=== PATIENT | female | born 1990 | race Caucasian/White ===

== ENCOUNTER 2017-06-12 09:55 | Emergency (ER) | payer OTHER ==
[2017-06-12 09:55] VITALS: BMI 29.9
--- NOTE | 2017-06-12 10:03 | ED PDOC ---
Arrival/HPI - General Historian: Patient - History of Present Illness Time/Duration: Other (12 hours) Symptom Onset: Sudden Symptom Course: Unchanged Activities at Onset: Rest Context: Home - General Chief Complaint: GI Problem Time Seen by Provider: 06/12/17 10:02 - History of Present Illness Narrative History of Present Illness (Text): 27 F with no PMH presents to ED with complaint of dizziness. Patient states that her symptoms began last night around 11 pm while sitting at home. Patient states that every time she stands up she gets dizzy. She reports sudden onset and never have had this before. Walking, moving head, and standing makes it worse. Nothing relieves her symptoms. She has not had her period in 5 months. She recently had blood work done with PMD (Dr. Lopez) but never followed up for results. (Leo Webb) Past Medical History - Provider Review Nursing Documentation Reviewed: Yes - Travel History Have you recently traveled outside [place] w/in the past 3 mons?: No - Psychiatric Hx Psychophysiologic Disorder: No Hx Substance Use: No - Surgical History Hx Section: Yes Family/Social History - Physician Review Nursing Documentation Reviewed: Yes Family/Social History: Unknown Family HX Smoking Status: Never Smoked Hx Alcohol Use: No Hx Substance Use: No Allergies/Home Meds Allergies/Adverse Reactions: Allergies No Known Allergies Allergy (Verified 06/12/17 10:20) Review of Systems - Review of Systems Constitutional: Fatigue. absent: Weight Change, Fevers, Night Sweats Eyes: absent: Vision Changes, Photophobia, Eye Pain ENT: absent: Hearing Changes, Tinnitus, TMJ Pain, Voice Changes, Sore Throat Respiratory: absent: SOB, Cough, Sputum, Wheezing Cardiovascular: absent: Chest Pain, Palpitations, Edema, Calf Pain, Syncope Gastrointestinal: absent: Abdominal Pain, Constipation, Diarrhea, Nausea, Vomiting Genitourinary Female: absent: Dysuria, Frequency, Vaginal Bleeding, Vaginal Discharge Musculoskeletal: absent: Arthralgias, Back Pain, Neck Pain, Myalgias Skin: absent: Rash, Skin Lesions Neurological: Dizziness. absent: Headache, Focal Weakness, Seizure Endocrine: absent: Diaphoresis, Polyuria, Polydipsia Hemo/Lymphatic: absent: Adenopathy, Easy Bleeding, Easy Bruising Psychiatric: absent: Anxiety, Depression, Suicidal Ideation Physical Exam Vital Signs Reviewed: Yes Temperature: Afebrile Blood Pressure: Normal Pulse: Regular Respiratory Rate: Normal Appearance: Positive for: Uncomfortable Pain Distress: Mild Mental Status: Positive for: Alert and Oriented X 3 - Systems Exam Head: Present: Atraumatic, Normocephalic Pupils: Present: PERRL Extroacular Muscles: Present: EOMI Ears: Present: NORMAL TM Mouth: Present: Moist Mucous Membranes Nose (External): Present: Atraumatic Nose (Internal): Present: Normal Inspection Neck: Present: Normal Range of Motion, Trachea Midline. No: MIDLINE TENDERNESS , Paraspinal Tenderness Respiratory/Chest: Present: Clear to Auscultation, Good Air Exchange. No: Respiratory Distress, Accessory Muscle Use, Wheezes, Rales, Rhonchi Cardiovascular: Present: Regular Rate and Rhythm, Normal S1, S2, Peripheal Pulses Present Abdomen: Present: Normal Bowel Sounds. No: Tenderness, Distention, Peritoneal Signs, Rebound, Guarding Back: No: CVA Tenderness Upper Extremity: Present: Normal ROM, NORMAL PULSES, Neurovascularly Intact, Capillary Refill < 2s Lower Extremity: Present: NORMAL PULSES, Normal ROM, Neurovascularly Intact, Capillary Refill < 2 s Neurological: Present: GCS=15, CN II-XII Intact, Speech Normal, Motor Func Grossly Intact, Normal Sensory Function, Normal Cerebellar Funct, Norm Deep Tendon Reflexes, Gait Normal, Memory Normal, Normal 2Pt Descrimination Skin: Present: Warm, Dry Lymphatic: No: Cervical Adenopathy, Axillary Adenopathy, Inguinal Adenopathy Psychiatric: Present: Alert, Oriented x 3, Normal Insight, Normal Concentration Vital Signs Temp Pulse Resp BP Pulse Ox 06/12/17 12:40 64 15 104/62 100 06/12/17 10:14 98.2 F 87 18 113/76 100 Medical Decision Making - Lab Interpretations I have reviewed the lab results: Yes Interpretation: No clinic. lab abnormalty - RAD Interpretation Regulatory Process Manager: ED Physician, Radiologist - EKG Interpretation Interpreted by ED Physician: Yes Type: 12 lead EKG ED Course and Treatment: CBC, CMP, MAG, Cardiac enzyme, POC pregnacy, UA CXR, EKG IV fluids, Meclizine PERC score is 0, <2% probability of PE - no tachycardia or tachypnea, VS stable Labs, CXR, EKG unremarkable Patient feeling much better after meclizine and iv fluids Patient ambulating without difficulty, no focal/motor/sensory deficits Medically stable for discharge (Leo Webb) Patient seen and examined with resident. Came up with treatment and disposition plan with resident. 06/12/17 12:46 pt with dizziness, no focal neurological deficits on exam HINTS exam negative states she feels much better after meds stats she still has slight residual spinning sensation pt offered admission for further w/u, but asked to be dc'd instead (Ricky Mckinney) - Lab Interpretations Lab Results: 06/12/17 11:00 06/12/17 11:00 Lab Results 06/12/17 11:00: Sodium 139, Potassium 4.1, Chloride 101, Carbon Dioxide 27, Anion Gap 15, BUN 11, Creatinine 0.5, Est GFR ( Amer) > 60, Est GFR (Non- Af Amer) > 60, Random Glucose 86, Calcium 9.2, Magnesium 1.9, Total Bilirubin 0.6, AST 18, ALT 23, Alkaline Phosphatase 34 L, Lactate Dehydrogenase 294 L, Total Creatine Kinase 25 L, Troponin I < 0.01, Total Protein 8.3, Albumin 4.6, Globulin 3.7, Albumin/Globulin Ratio 1.2 06/12/17 11:00: Urine Color Light yellow, Urine Appearance Clear, Urine pH 7.5, Ur Specific [place] 1.015, Urine Protein Negative, Urine Glucose (UA) Negative, Urine Ketones Negative, Urine Blood Negative, Urine Nitrate Negative, Urine Bilirubin Negative, Urine Urobilinogen 0.2, Ur Leukocyte Esterase Negative 06/12/17 11:00: PT 11.1, INR 1.03, APTT 30.8 06/12/17 11:00: WBC 3.3 L D, RBC 5.22, Hgb 13.3, Hct 40.8, MCV 78.2 L, MCH 25.5 , MCHC 32.6, RDW 14.0, Plt Count 209, MPV 9.6, Gran % 43.8 L, Lymph % (Auto) 44.7 H, [place] % (Auto) 8.5 H, Eos % (Auto) 2.4, Baso % (Auto) 0.6, Gran # 1.45, Lymph # 1.5, [place] # 0.3, Eos # 0.1, Baso # 0.02 - RAD Interpretation Narrative RAD Interpretations (Text): CXR: no active disease (Leo Webb) Radiology Orders: 06/12/17 10:36 CHEST PORTABLE [RAD] Stat - EKG Interpretation EKG Interpretation (Text): NSR at 69 bpm (Loe Webb) - Medication Orders Current Medication Orders: Discontinued Medications Sodium Chloride (Sodium Chloride 0.9%) 1,000 mls @ 999 mls/hr IV .Q1H1M STA Stop: 06/12/17 11:42 Last Admin: 06/12/17 11:11 Dose: 999 mls/hr Meclizine HCl (Antivert) 25 mg PO STAT STA Stop: 06/12/17 10:43 Last Admin: 06/12/17 11:09 Dose: 25 mg Disposition/Present on Arrival - Present on Arrival Any Indicators Present on Arrival: No History of DVT/PE: No History of Uncontrolled Diabetes: No Urinary Catheter: No History of Decub. Ulcer: No History Surgical Site Infection Following: None - Disposition Have Diagnosis and Disposition been Completed?: No Disposition Time: 12:02 Patient Plan: Discharge - Disposition Diagnosis: Dizziness Disposition: HOME/ ROUTINE Patient Problems: Current Active Problems Problem Status Onset Dizziness Acute Condition: GOOD Discharge Instructions (ExitCare): Dizziness (ED) Additional Instructions: Thank you for letting us take care of you today. Your provider was Dr. Webb. You were treated for Dizziness. The emergency medical care you received today was directed at your acute symptoms. If you were prescribed any medication, please fill it and take as directed. It may take several days for your symptoms to resolve. Return to the Emergency Department if your symptoms worsen, do not improve, or if you have any other problems. Please contact your doctor or call one of the physicians/clinics you have been referred to that are listed on the Patient Visit Information form that is included in your discharge packet. Bring any paperwork you were given at discharge with you along with any medications you are taking to your follow up visit. Our treatment cannot replace ongoing medical care by a primary care provider (PCP) outside of the emergency department. Thank you for allowing the [facility] team to be part of your care today. If you had an X-Ray or CT scan: A Radiologist will review the ED reading if any change in treatment is needed we will contact you. If you had a blood, urine, or wound culture: It will take several days for the results, if any change in treatment is needed we will contact you. If you had an STI test: It will take 48 hours for the results. Please call after 1 week if you have not heard back. Take Meclizine as prescribed Stay adequately hydrated Follow up with ENT Follow up with PMD within 2-3 days Please return to ED if symptoms persist or condition worsens Prescriptions: Meclizine [Meclizine*] 25 mg PO Q6 #30 tab Referrals: Juma Lopez MD [Primary Care Provider] - Follow up with primary Afshin Kearney DO [Staff Provider] - Follow up with primary
[2017-06-12 10:20] VITALS: TEMP 98.2; O2SAT 100
[2017-06-12] MEDS ORDERED: Sodium Chloride 0.9% 1,000 ML IV STA (10:42)
[2017-06-12 11:16] LABS: BASO # 0.02 K/mm3 (0.0-2.0); BASO % 0.6 % (0.0-3.0); EOS # 0.1 (0.0-0.7); EOS % 2.4 % (1.5-5.0); GRAN # 1.45 (1.4-6.5); GRAN % 43.8 % (50.0-68.0); HEMOGLOBIN 13.3 gm/dL (12.0-16.0); LYMPH # 1.5 (1.2-3.4); LYMPH % 44.7 % (22.0-35.0); MEAN CELL VOLUME 78.2 fL (80.0-105.0); MEAN CORPUSCULAR HEMOGLOBIN 25.5 pg (25.0-35.0); MEAN CORPUSCULAR HGB CONC 32.6 g/dl (31.0-37.0); MEAN PLATELET VOLUME 9.6 fl (7.0-11.0); MONO # 0.3 (0.1-0.6); MONO % 8.5 % (1.0-6.0); PLATELET COUNT 209 10^3/uL (120.0-450.0); RBC 5.22 10^6/uL (3.5-6.1); WHITE BLOOD COUNT 3.3 10^3/ul (4.5-11.0)
[2017-06-12 11:18] LABS: PH,URINE 7.5 (4.7-8.0); URINE BILIRUBIN NEGATIVE (NEGATIVE); URINE BLOOD NEGATIVE (NEGATIVE); URINE GLUCOSE (UA) NEGATIVE (NEGATIVE); URINE LEUKOCYTE ESTERASE NEGATIVE Leu/uL (NEGATIVE); URINE NITRATE NEGATIVE (NEGATIVE); URINE PROTEIN NEGATIVE mg/dL (<30 mg/dL); URINE UROBILINOGEN 0.2 E.U./dL (<1 E.U./dL)
[2017-06-12 11:19] LABS: URINE APPEARANCE CLEAR (CLEAR); URINE COLOR LIGHT YELLOW (YELLOW)
[2017-06-12 11:26] LABS: ALB/GLOB RATIO 1.2 (1.1-1.8); ALBUMIN 4.6 g/dL (3.0-4.8); ALT/SGPT 23 U/L (7-56); AST/SGOT 18 U/L (15-39); BLOOD UREA NITROGEN 11 mg/dL (7-21); CALCIUM 9.2 mg/dL (8.4-10.5); GFR AFRICAN-AMERICAN > 60; GFR NON-AFRICAN AMERICAN > 60; MAGNESIUM 1.9 mg/dL (1.7-2.2)
[2017-06-12 11:29] LABS: INR 1.03 (0.93-1.08); PARTIAL THROMBOPLASTIN TIME 30.8 Seconds (23.7-30.8); PROTHROMBIN TIME 11.1 Seconds (9.9-11.8)
[2017-06-12 11:41] LABS: TROPONIN I < 0.01 ng/mL
[2017-06-12 12:41] VITALS: BP 104/62; PULSE 64; RESP 15
--- NOTE | 2017-06-12 12:51 | RAD ---
HISTORY: sob/chest pain COMPARISON: 11/03/2015 FINDINGS: LUNGS: No active pulmonary disease. PLEURA: No significant pleural effusion identified, no pneumothorax apparent. CARDIOVASCULAR: Normal. OSSEOUS STRUCTURES: No significant abnormalities. VISUALIZED UPPER ABDOMEN: Normal. OTHER FINDINGS: None. IMPRESSION: No active disease.
--- NOTE | 2017-06-12 16:33 | CARD ---
APPROVED REPORT EKG Measurement Heart [id number] <Conclusion> Normal sinus rhythm Normal ECG
== END 2017-06-12 12:53 | disposition home or self-care (01) ==
LOC: ED 09:55
DX: R42 Dizziness and giddiness (principal)
CPT/HCPCS: 71010; 80053; 81003; 82550; 83615; 83735; 84484; 85025; 85610; 85730; 93005; 96360; 96361; 99283; J7040

== ENCOUNTER 2017-06-21 20:43 | Emergency (ER) | payer OTHER ==
[2017-06-21 21:03] VITALS: BMI 29.0
[2017-06-21 21:11] VITALS: BP 98/70; PULSE 85; RESP 20; O2SAT 100
[2017-06-21 21:17] VITALS: TEMP 97.8
[2017-06-21] MEDS ORDERED: Naproxen 550 mg Tab PO STA (21:38)
--- NOTE | 2017-06-21 22:32 | ED PDOC ---
Arrival/HPI - General Historian: Patient - General Chief Complaint: Lower Extremity Problem/Injury Time Seen by Provider: 06/21/17 21:22 - History of Present Illness Narrative History of Present Illness (Text): 06/21/17 23:02 27 yo F c/o pain to the L 5th toe, after she hit her toe on a door at 2 pm today. Denies any lacerations, nail injury, numbness, weakness, or any other injury. PMD Dequan (Miguelito WHITNEY,Romina Crespo) Past Medical History - Provider Review Nursing Documentation Reviewed: Yes - Infectious Disease Hx of Infectious Diseases: None - Psychiatric Hx Psychophysiologic Disorder: No Hx Substance Use: No - Surgical History Hx Section: Yes - Anesthesia Hx Anesthesia: Yes Hx Anesthesia Reactions: No Hx Malignant Hyperthermia: No Family/Social History - Physician Review Nursing Documentation Reviewed: Yes Family/Social History: No Known Family HX Smoking Status: Never Smoked Hx Alcohol Use: No Hx Substance Use: No Allergies/Home Meds Allergies/Adverse Reactions: Allergies No Known Allergies Allergy (Verified 06/12/17 10:20) Review of Systems - Review of Systems Constitutional: Normal. absent: Fatigue, Weight Change, Fevers Musculoskeletal: Normal, Arthralgias. absent: Back Pain, Neck Pain Skin: Normal. absent: Rash, Pruritis, Skin Lesions Physical Exam Vital Signs Reviewed: Yes Temperature: Afebrile Blood Pressure: Normal Pulse: Regular Respiratory Rate: Normal Appearance: Positive for: Well-Appearing, Non-Toxic, Comfortable Pain Distress: Mild Mental Status: Positive for: Alert and Oriented X 3 - Systems Exam Lower Extremity: Present: Normal Inspection, NORMAL PULSES, Normal ROM, Neurovascularly Intact, Capillary Refill < 2 s, Other (L foot: +tenderness to palpation of the 5th toe with no deformity, no edema, nail is intact, cap refill < 2 sec, sensation intact.). No: Edema, Cyanosis, Tenderness, Swelling, Erythema, Deformity, Temperature Abnormalties Neurological: Present: GCS=15, CN II-XII Intact, Motor Func Grossly Intact, Normal Sensory Function Skin: Present: Warm, Dry, Normal Color. No: Rashes Vital Signs Temp Pulse Resp BP Pulse Ox 06/21/17 21:17 97.8 F 06/21/17 21:10 85 20 98/70 L 100 Medical Decision Making ED Course and Treatment: 06/21/17 22:47 I was available for consultation during PA evaluation. The chart reviewed by me , and I agree with disposition. The documented history was done by the physician station tender. The documented physical exam was done by physician station tender. The documented procedures were done by physician station tender. (Ricky Mckinney) 06/21/17 22:29 27 yo F c/o pain to the L 5th toe after hitting her toe on a door at 2 pm. Differential diagnosis : to r/o fracture, consider sprain vs contusion Plan: - XR L toe - Naprosyn po XR L toe : (-) fracture, (-) dislocation, as read by PA. Patient advised that official radiology read of XR is still pending and will call the patient if there is any discrepancy within 24 hours. X-ray results discussed with the patient in great detail. Toe taping applied. Patient advised to ice and elevate, take [id number] Motrin for pain. Otherwise instructed to follow up with primary care physician in 1-2 days without fail. Return to the emergency room at any time for any new or worsening symptoms. Patient states she fully agrees with and understands discharge instructions. States that she agrees with the plan and disposition. Verbalized and repeated discharge instructions and plan. I have given the patient opportunity to ask any additional questions. (Miguelito WHITNEY,Romina Crespo) - RAD Interpretation Radiology Orders: 06/21/17 21:38 FOOT LEFT 5TH DIGIT (TOE) [RAD] Stat - Medication Orders Current Medication Orders: Discontinued Medications Naproxen (Anaprox Ds) 550 mg PO ONCE STA Stop: 06/21/17 21:39 Last Admin: 06/21/17 22:01 Dose: 550 mg - PA / CLINICAL NURSING ASSISTANT / Resident Statement MD/DO has reviewed & agrees with the documentation as recorded. Disposition/Present on Arrival - Present on Arrival Any Indicators Present on Arrival: No History of DVT/PE: No History of Uncontrolled Diabetes: No Urinary Catheter: No History of Decub. Ulcer: No History Surgical Site Infection Following: None - Disposition Have Diagnosis and Disposition been Completed?: Yes Disposition Time: 22:30 Patient Plan: Discharge - Disposition Diagnosis: Toe contusion Disposition: HOME/ ROUTINE Condition: GOOD Discharge Instructions (ExitCare): Foot Contusion (ED) Print Language: BURKIN[place] Additional Instructions: Thank you for letting us take care of you today. You were treated for toe contusion. The emergency medical care you received today was directed at your acute symptoms. If you were prescribed any medication, please fill it and take as directed. It may take several days for your symptoms to resolve. Return to the Emergency Department if your symptoms worsen, do not improve, or if you have any other problems. Please contact your doctor in 2 days for re-evaluation and follow up. Bring any paperwork you were given at discharge with you along with any medications you are taking to your follow up visit. Our treatment cannot replace ongoing medical care by a primary care provider (PCP) outside of the emergency department. Thank you for allowing the [facility] team to be part of your care today. Prescriptions: Naproxen 500 mg PO BID #30 tab Forms: [employer] (German), WORK NOTE
--- NOTE | 2017-06-22 08:31 | RAD ---
PROCEDURE: Radiographs of the left 5th toe. TECHNIQUE:: AP radiograph of the left foot, with oblique and lateral view of the left 5th toe. COMPARISON: None. FINDINGS: BONES: Bone alignment and mineralization are normal. There is no acute displaced fracture or bone destruction. JOINTS: Normal. SOFT TISSUES: Normal. OTHER FINDINGS: None. IMPRESSION: No acute fracture or dislocation.
== END 2017-06-21 22:41 | disposition home or self-care (01) ==
LOC: ED 20:43
DX: S90.122A Contusion of left lesser toe(s) without damage to nail, initial encounter (principal); W22.8XXA Striking against or struck by other objects, initial encounter